=== PATIENT | male | born 1945 | race Two or more races ===

== ENCOUNTER 2020-09-09 11:14 | Emergency (ER) | payer OTHER, MEDICAID ==
[~2020-09-09] VITALS: Ht 177.8 cm; Wt 77.1 kg
[~2020-09-09 11:14] MED LIST: AMLO-483 PO; Atorvastatin Calcium PO; CLOP75TA28 PO; CYAN500T3 PO; DORZ1SOL2 OP; LATA0.0019 EACHEYE; SIMV-8 PO
[2020-09-09] MEDS ORDERED: SODIUM CHLORIDE 0.9% 1,000 ML IV ONE ×2 (11:30)
[2020-09-09] MEDS ORDERED: KETOROLAC TROMETH 30 MG/ML 1ML VIAL IV ONE (11:45)
[2020-09-09 11:54] LABS: Basophils # (auto) 0 10 ^3/uL (0-0.2); Basophils % (auto) 0.3 % (0.0-2.0); Eosinophils # (auto) 0.1 10 ^3/uL (0-0.8); Eosinophils % (auto) 1.1 % (0.0-7.0); Hematocrit 43.3 % (41.0-53.0); Hemoglobin 14.7 g/dL (13.5-17.5); Lymphocytes # (auto) 1.3 10 ^3/uL (0.4-5.4); Lymphocytes % (auto) 25.4 % (10.0-50.0); Mean Corpuscular Hemoglobin 32.6 pg (28.0-32.0); Mean Corpuscular Hgb Conc. 33.9 g/dL (32.0-36.0); Mean Corpuscular Volume 95.9 fL (80.0-100.0); Monocytes # (auto) 0.4 10 ^3/uL (0-1.3); Monocytes % (auto) 8.4 % (0.0-12.0); Neutrophils # (auto) 3.4 10 ^3/uL (1.6-8.6); Neutrophils % (auto) 64.8 % (37.0-80.0); Nucleated Red Blood Cells % 0.1 %; Platelet Count (auto) 216 10^3/uL (140-450); Red Blood Cells 4.51 10^6/uL (4.5-5.90); Red Cell Distribution Width 14.1 % (11.8-14.3); White Blood Cell 5.2 10^3/uL (4.4-10.8)
[2020-09-09 12:09] LABS: Albumin 3.7 g/dL (3.4-5.0); Anion Gap 5 (5-15); Blood Urea Nitrogen 8 mg/dL (7-18); Calcium 8.5 mg/dL (8.5-10.1); Carbon Dioxide 24 mmol/L (21-32); Chloride 112 mmol/L (98-107); Glucose 117 mg/dL (74-106); Potassium 3.6 mmol/L (3.5-5.1); Sodium 141 mmol/L (136-145)
[2020-09-09 12:15] LABS: Alanine Aminotransferase 26 U/L (16-61); Alkaline Phosphatase 73 U/L (45-117); Aspartate Aminotransferase 20 U/L (15-37); BUN/Creatinine Ratio 7.6; Bilirubin, Total 0.7 mg/dL (0.2-1.0); GFR African American 89 mL/min; GFR Non-African American 73 mL/min; Total Protein 6.9 g/dL (6.4-8.2)
[2020-09-09 13:32] LABS: Urine Bacteria NONE SEEN /hpf (None Seen); Urine Blood Negative /uL (Negative); Urine Mucus FEW (None Seen); Urine Specific Gravity 1.024 (1.001-1.035); Urine WBC 1 /hpf (0 - 3)
[2020-09-09 14:28] VITALS: BP 128/81
== END 2020-09-09 15:32 | disposition home or self-care (01) ==
LOC: EDBD 11:14 → ER 11:14
DX: R10.9 Unspecified abdominal pain (principal); E11.9 Type 2 diabetes mellitus without complications; I10 Essential (primary) hypertension; F12.10 Cannabis abuse, uncomplicated; Z90.49 Acquired absence of other specified parts of digestive tract; Z86.73 Personal history of transient ischemic attack (TIA), and cerebral infarction without residual deficits
CPT/HCPCS: 36415; 71045; 74176; 80053; 81001; 84484; 85025; 93005; 96361; 96374; 99285; J1885; J7030

== ENCOUNTER → 2021-08-02 | Outpatient (CLI) | payer MEDICAID ==
[2021-08-02 12:38] LABS: Albumin 3.4 g/dL (3.4-5.0); Calcium 8.9 mg/dL (8.5-10.1); Potassium 3.7 mmol/L (3.5-5.1)
[2021-08-02 12:42] LABS: BUN/Creatinine Ratio 14.3; Bilirubin, Total 0.7 mg/dL (0.2-1.0); Total Protein 6.7 g/dL (6.4-8.2)
== END | disposition home or self-care (01) ==
LOC: LAB 11:38
PROVIDERS: ATTEND Podiatrist
DX: E11.49 Type 2 diabetes mellitus with other diabetic neurological complication (principal)
CPT/HCPCS: 36415; 80053; 83036

== ENCOUNTER → 2021-11-14 | Outpatient (CLI) | payer MEDICAID | END | disposition home or self-care (01) | LOC: XY 09:59 | PROVIDERS: ATTEND Podiatrist | DX: I77.9 Disorder of arteries and arterioles, unspecified (principal) | CPT/HCPCS: 93925 ==

== ENCOUNTER 2022-02-07 11:15 | Inpatient (IN) | payer OTHER, MEDICAID ==
[~2022-02-07] VITALS: Ht 188 cm; Wt 68.3 kg
[2022-02-07 12:22] LABS: Basophils # (auto) 0 10 ^3/uL (0-0.2); Basophils % (auto) 0.5 % (0.0-2.0); Eosinophils # (auto) 0.1 10 ^3/uL (0-0.8); Eosinophils % (auto) 1.4 % (0.0-7.0); Hematocrit 42.8 % (41.0-53.0); Hemoglobin 14.5 g/dL (13.5-17.5); Lymphocytes # (auto) 1.6 10 ^3/uL (0.4-5.4); Lymphocytes % (auto) 25.3 % (10.0-50.0); Mean Corpuscular Hemoglobin 31.3 pg (28.0-32.0); Mean Corpuscular Hgb Conc. 33.7 g/dL (32.0-36.0); Mean Corpuscular Volume 92.6 fL (80.0-100.0); Monocytes # (auto) 0.5 10 ^3/uL (0-1.3); Monocytes % (auto) 7.5 % (0.0-12.0); Neutrophils % (auto) 65.3 % (37.0-80.0); Red Blood Cells 4.62 10^6/uL (4.5-5.90); Red Cell Distribution Width 13.8 % (11.8-14.3); White Blood Cell 6.2 10^3/uL (4.4-10.8)
[2022-02-07 12:53] LABS: Albumin 3.6 g/dL (3.4-5.0); Calcium 8.7 mg/dL (8.5-10.1); Potassium 3.1 mmol/L (3.5-5.1)
[2022-02-07 12:56] LABS: BUN/Creatinine Ratio 7.4; Total Protein 7.2 g/dL (6.4-8.2)
[2022-02-07] MEDS ORDERED: ACETAMINOPHEN/CODEINE#3 (300/30mg) TAB PO ONE (15:00)
[2022-02-07] MEDS ORDERED: ONDANSETRON HCL 4 MG/2 ML VIAL IV PRN (16:45)
[2022-02-07] MEDS ORDERED: POTASSIUM CHL 20 Meq TABLET PO ONE (17:45)
[2022-02-07 20:16] LABS: Magnesium 2.1 mg/dL (1.6-2.6); Phosphorus 2.9 mg/dL (2.5-4.90)
[2022-02-07] MEDS: ATORVASTATIN 20 MG TAB PO SCH (23:47)
[2022-02-07] MEDS: [UNRECOGNIZED DRUG - OTHER] EACHEYE SCH (23:52)
[2022-02-07] MEDS: LATANOPROST 0.005 % OPTH(EYE) SOL 2.5ML EACHEYE SCH (23:53)
[2022-02-08] MEDS: TEMAZEPAM 15 MG CAP PO PRN (00:46)
[2022-02-08 04:37] LABS: Basophils # (auto) 0 10 ^3/uL (0-0.2); Basophils % (auto) 0.3 % (0.0-2.0); Eosinophils # (auto) 0.1 10 ^3/uL (0-0.8); Eosinophils % (auto) 1.9 % (0.0-7.0); Hematocrit 41.6 % (41.0-53.0); Hemoglobin 14.1 g/dL (13.5-17.5); Lymphocytes # (auto) 1.7 10 ^3/uL (0.4-5.4); Mean Corpuscular Hemoglobin 32.2 pg (28.0-32.0); Mean Corpuscular Volume 94.8 fL (80.0-100.0); Monocytes # (auto) 0.7 10 ^3/uL (0-1.3); Monocytes % (auto) 9.1 % (0.0-12.0); Neutrophils # (auto) 4.7 10 ^3/uL (1.6-8.6); Neutrophils % (auto) 65.7 % (37.0-80.0); Nucleated Red Blood Cells % 0.1 %; Red Blood Cells 4.39 10^6/uL (4.5-5.90); Red Cell Distribution Width 13.9 % (11.8-14.3); White Blood Cell 7.2 10^3/uL (4.4-10.8)
[2022-02-08 04:50] LABS: Albumin 3.5 g/dL (3.4-5.0); Calcium 8.7 mg/dL (8.5-10.1); Potassium 3.6 mmol/L (3.5-5.1)
[2022-02-08 05:01] LABS: BUN/Creatinine Ratio 10.7; Bilirubin, Total 0.8 mg/dL (0.2-1.0); Total Protein 6.4 g/dL (6.4-8.2)
[2022-02-08] MEDS ORDERED: CLOPIDOGREL BISULFATE 75 MG TAB PO SCH (10:00)
[2022-02-08] MEDS: [UNRECOGNIZED DRUG - OTHER] EACHEYE SCH ×2 (10:00→22:00)
[2022-02-08] MEDS: ENOXAPARIN SOD 40 MG/0.4 ML SYRINGE SC SCH (11:45)
[2022-02-08] MEDS: PANTOPRAZOLE 40 MG TAB PO SCH (11:46)
[2022-02-08] MEDS: CYANOCOBALAMIN 500 MCG TAB PO SCH (11:46)
[2022-02-08] MEDS: amLODIPine BESYLATE 5 MG TAB PO SCH (11:46)
[2022-02-08] MEDS: LATANOPROST 0.005 % OPTH(EYE) SOL 2.5ML EACHEYE SCH (11:47)
[2022-02-08] MEDS ORDERED: LORazepam 2MG/ML-1ML VIAL IV PRN (17:15)
[2022-02-08 17:30] VITALS: BP 147/69
[2022-02-08 19:23] LABS: Cholesterol 123 mg/dL (< 200); HDL Cholesterol 63 mg/dL (40-59); LDL Cholesterol 59 mg/dL (< 100); Triglycerides 94 mg/dL (< 150)
[2022-02-08 21:45] VITALS: BP 155/79
[2022-02-08] MEDS: DONEPEZIL HYDROCHLORIDE 5 MG TAB PO SCH (23:01)
[2022-02-08] MEDS: ATORVASTATIN 20 MG TAB PO SCH (23:02)
[2022-02-08] MEDS: TICAGRELOR 90 MG TAB PO SCH (23:02)
[2022-02-09 04:38] VITALS: BP 135/97
[2022-02-09 09:00] VITALS: BP 139/78
[2022-02-09] MEDS: ASPirin-EC 81 mg tab PO SCH (09:57)
[2022-02-09] MEDS: ENOXAPARIN SOD 40 MG/0.4 ML SYRINGE SC SCH (09:57)
[2022-02-09] MEDS: TICAGRELOR 90 MG TAB PO SCH ×2 (09:57→22:10)
[2022-02-09] MEDS: [UNRECOGNIZED DRUG - OTHER] EACHEYE SCH ×2 (09:58→22:00)
[2022-02-09] MEDS: amLODIPine BESYLATE 5 MG TAB PO SCH (09:58)
[2022-02-09] MEDS: PANTOPRAZOLE 40 MG TAB PO SCH (09:58)
[2022-02-09] MEDS: CYANOCOBALAMIN 500 MCG TAB PO SCH (09:58)
[2022-02-09] MEDS: HYDROcodone-ACET 5/325MG TAB PO PRN ×2 (10:12→21:40)
[2022-02-09 12:43] VITALS: BP 135/78
[2022-02-09 16:58] VITALS: BP 176/72
[2022-02-09 22:00] VITALS: BP 138/70
[2022-02-09] MEDS: LATANOPROST 0.005 % OPTH(EYE) SOL 2.5ML EACHEYE SCH (22:00)
[2022-02-09] MEDS: DONEPEZIL HYDROCHLORIDE 5 MG TAB PO SCH (22:10)
[2022-02-09] MEDS: ATORVASTATIN 20 MG TAB PO SCH (22:10)
[2022-02-10 05:00] VITALS: BP 178/70
[2022-02-10] MEDS ORDERED: ADENOSINE 59 MG in GIVE UN-DILUTED 0 ML IV STA (07:41)
[2022-02-10 09:00] VITALS: BP 139/78
[2022-02-10] MEDS: [UNRECOGNIZED DRUG - OTHER] EACHEYE SCH ×2 (10:00→21:12)
[2022-02-10 10:07] VITALS: BP 134/68
[2022-02-10] MEDS: PANTOPRAZOLE 40 MG TAB PO SCH (12:17)
[2022-02-10] MEDS: TICAGRELOR 90 MG TAB PO SCH ×2 (12:18→21:11)
[2022-02-10] MEDS: CYANOCOBALAMIN 500 MCG TAB PO SCH (12:20)
[2022-02-10] MEDS: ENOXAPARIN SOD 40 MG/0.4 ML SYRINGE SC SCH (12:20)
[2022-02-10] MEDS: amLODIPine BESYLATE 5 MG TAB PO SCH (12:20)
[2022-02-10] MEDS: ASPirin-EC 81 mg tab PO SCH (12:21)
[2022-02-10 13:00] VITALS: BP 159/60
[2022-02-10 17:00] VITALS: BP 110/64
[2022-02-10] MEDS: DONEPEZIL HYDROCHLORIDE 5 MG TAB PO SCH (21:11)
[2022-02-10] MEDS: ATORVASTATIN 20 MG TAB PO SCH (21:11)
[2022-02-10] MEDS: HYDROcodone-ACET 5/325MG TAB PO PRN (21:11)
[2022-02-10] MEDS: TEMAZEPAM 15 MG CAP PO PRN (21:12)
[2022-02-10] MEDS: LATANOPROST 0.005 % OPTH(EYE) SOL 2.5ML EACHEYE SCH (21:12)
[2022-02-10 22:40] VITALS: BP 121/65
[2022-02-11 05:42] VITALS: BP 136/81
[2022-02-11 09:00] VITALS: BP 154/72
[2022-02-11] MEDS: ASPirin-EC 81 mg tab PO SCH (09:59)
[2022-02-11] MEDS: PANTOPRAZOLE 40 MG TAB PO SCH (09:59)
[2022-02-11] MEDS: CYANOCOBALAMIN 500 MCG TAB PO SCH (09:59)
[2022-02-11] MEDS: TICAGRELOR 90 MG TAB PO SCH ×2 (10:01→22:39)
[2022-02-11] MEDS: amLODIPine BESYLATE 5 MG TAB PO SCH (10:01)
[2022-02-11] MEDS: ENOXAPARIN SOD 40 MG/0.4 ML SYRINGE SC SCH (10:02)
[2022-02-11] MEDS: [UNRECOGNIZED DRUG - OTHER] EACHEYE SCH ×2 (12:21→22:38)
[2022-02-11 22:00] VITALS: BP 121/65
[2022-02-11] MEDS: LATANOPROST 0.005 % OPTH(EYE) SOL 2.5ML EACHEYE SCH (22:00)
[2022-02-11] MEDS: DONEPEZIL HYDROCHLORIDE 5 MG TAB PO SCH (22:38)
[2022-02-11] MEDS: HYDROcodone-ACET 5/325MG TAB PO PRN (22:41)
[2022-02-11] MEDS: ATORVASTATIN 20 MG TAB PO SCH (22:42)
[2022-02-12 05:00] VITALS: BP 126/78
[2022-02-12] MEDS: HYDROcodone-ACET 5/325MG TAB PO PRN (07:03)
[2022-02-12 08:45] VITALS: BP 129/64
[2022-02-12] MEDS: amLODIPine BESYLATE 5 MG TAB PO SCH (09:22)
[2022-02-12] MEDS: ASPirin-EC 81 mg tab PO SCH (09:23)
[2022-02-12] MEDS: PANTOPRAZOLE 40 MG TAB PO SCH (09:23)
[2022-02-12] MEDS: TICAGRELOR 90 MG TAB PO SCH ×2 (09:23→21:20)
[2022-02-12] MEDS: CYANOCOBALAMIN 500 MCG TAB PO SCH (09:23)
[2022-02-12] MEDS: ENOXAPARIN SOD 40 MG/0.4 ML SYRINGE SC SCH (09:23)
[2022-02-12] MEDS: [UNRECOGNIZED DRUG - OTHER] EACHEYE SCH ×2 (09:24→21:34)
[2022-02-12] MEDS ORDERED: LOPERAMIDE HCL 2 MG CAP/TAB PO ONE (10:15)
[2022-02-12] MEDS ORDERED: LOPERAMIDE HCL 2 MG CAP/TAB PO PRN (10:15)
[2022-02-12 12:50] VITALS: BP 142/70
[2022-02-12 16:40] VITALS: BP 131/66
[2022-02-12] MEDS: DONEPEZIL HYDROCHLORIDE 5 MG TAB PO SCH (21:19)
[2022-02-12] MEDS: ATORVASTATIN 20 MG TAB PO SCH (21:20)
[2022-02-12] MEDS: LATANOPROST 0.005 % OPTH(EYE) SOL 2.5ML EACHEYE SCH (21:34)
[2022-02-12 22:09] VITALS: BP 124/69
[2022-02-13 04:48] VITALS: BP 137/74
[2022-02-13] MEDS: PANTOPRAZOLE 40 MG TAB PO SCH (09:23)
[2022-02-13] MEDS: CYANOCOBALAMIN 500 MCG TAB PO SCH (09:23)
[2022-02-13] MEDS: amLODIPine BESYLATE 5 MG TAB PO SCH (09:24)
[2022-02-13] MEDS: TICAGRELOR 90 MG TAB PO SCH ×2 (09:24→20:07)
[2022-02-13] MEDS: ASPirin-EC 81 mg tab PO SCH (09:24)
[2022-02-13] MEDS: ENOXAPARIN SOD 40 MG/0.4 ML SYRINGE SC SCH (09:25)
[2022-02-13] MEDS: [UNRECOGNIZED DRUG - OTHER] EACHEYE SCH ×2 (09:30→20:09)
[2022-02-13 13:20] VITALS: BP 146/68
[2022-02-13 17:54] VITALS: BP 146/68
[2022-02-13 17:58] VITALS: BP 126/73
[2022-02-13] MEDS: DONEPEZIL HYDROCHLORIDE 5 MG TAB PO SCH (20:06)
[2022-02-13] MEDS: HYDROcodone-ACET 5/325MG TAB PO PRN (20:06)
[2022-02-13] MEDS: ATORVASTATIN 20 MG TAB PO SCH (20:07)
[2022-02-13] MEDS: LATANOPROST 0.005 % OPTH(EYE) SOL 2.5ML EACHEYE SCH (20:08)
== END 2022-02-13 21:38 | DRG 65 ==
LOC: ER 11:15 → TELE 16:43 → TELE-WESTW 02-08 16:42 → OBSVTOIN 02-10 01:51
PROVIDERS: ADMIT Nurse Practitioner Family; ATTEND Family Medicine
DX: I63.9 Cerebral infarction, unspecified (principal); E44.0 Moderate protein-calorie malnutrition; F01.54 Vascular dementia, unspecified severity, with anxiety; F02.84 Dementia in other diseases classified elsewhere, unspecified severity, with anxiety; I69.354 Hemiplegia and hemiparesis following cerebral infarction affecting left non-dominant side; Z68.1 Body mass index [BMI] 19.9 or less, adult; G30.9 Alzheimer's disease, unspecified; I49.9 Cardiac arrhythmia, unspecified; R42 Dizziness and giddiness; W19.XXXA Unspecified fall, initial encounter; R55 Syncope and collapse; E87.6 Hypokalemia; I25.10 Atherosclerotic heart disease of native coronary artery without angina pectoris; Z20.822 Contact with and (suspected) exposure to COVID-19; E11.9 Type 2 diabetes mellitus without complications; I10 Essential (primary) hypertension; H40.9 Unspecified glaucoma; E78.5 Hyperlipidemia, unspecified; F17.210 Nicotine dependence, cigarettes, uncomplicated; E78.00 Pure hypercholesterolemia, unspecified; R29.6 Repeated falls; Z90.49 Acquired absence of other specified parts of digestive tract; Z83.3 Family history of diabetes mellitus; Z79.02 Long term (current) use of antithrombotics/antiplatelets; Z79.82 Long term (current) use of aspirin; Z79.84 Long term (current) use of oral hypoglycemic drugs; Z79.899 Other long term (current) drug therapy
CPT/HCPCS: 36415; 70450; 70551; 71101; 71250; 72131; 73502; 73700; 74176; 78452; 80053; 80061; 82607; 83735; 84100; 84443; 84484; 85025; 87426; 93005; 93017; 93306; 93886; 95819; 97163; G0378; J0153

== ENCOUNTER 2022-12-04 11:54 | Inpatient (IN) | payer OTHER, MEDICAID ==
[~2022-12-04] VITALS: Ht 188 cm; Wt 71.8 kg
[~2022-12-04 11:54] MED LIST changes: -AMLO-483 PO; +AMLO1TAB21 PO; -LATA0.0019 EACHEYE; +LATA0.008 EACHEYE; -SIMV-8 PO; +SIMV20TA20 PO
[2022-12-04 13:14] VITALS: PULSE 80; RESP 10; O2SAT 97
[2022-12-04 13:14] LABS: Basophils # (auto) 0 10 ^3/uL (0-0.2); Basophils % (auto) 0.2 % (0.0-2.0); Eosinophils # (auto) 0.1 10 ^3/uL (0-0.8); Eosinophils % (auto) 2.2 % (0.0-7.0); Hematocrit 41.7 % (41.0-53.0); Hemoglobin 14.1 g/dL (13.5-17.5); Lymphocytes # (auto) 1.7 10 ^3/uL (0.4-5.4); Lymphocytes % (auto) 28.1 % (10.0-50.0); Mean Corpuscular Hemoglobin 32.6 pg (28.0-32.0); Mean Corpuscular Hgb Conc. 33.8 g/dL (32.0-36.0); Mean Corpuscular Volume 96.6 fL (80.0-100.0); Monocytes # (auto) 0.4 10 ^3/uL (0-1.3); Monocytes % (auto) 6.7 % (0.0-12.0); Neutrophils # (auto) 3.8 10 ^3/uL (1.6-8.6); Neutrophils % (auto) 62.8 % (37.0-80.0); Nucleated Red Blood Cells % 0.1 %; Red Blood Cells 4.32 10^6/uL (4.5-5.90); Red Cell Distribution Width 13.6 % (11.8-14.3); White Blood Cell 6.1 10^3/uL (4.4-10.8)
[2022-12-04 13:30] LABS: INR 1.06 (0.9-1.15); Partial Thromboplastin Time 27.3 SEC (24.5-34.5); Prothrombin Time 11.1 sec (9.3-11.8)
[2022-12-04 13:46] LABS: Potassium 3.5 mmol/L (3.5-5.1)
[2022-12-04 14:03] LABS: Albumin 3.6 g/dL (3.4-5.0); BUN/Creatinine Ratio 8.9 (10.0-20.0); Bilirubin, Total 0.6 mg/dL (0.2-1.0); Calcium 8.8 mg/dL (8.5-10.1); Total Protein 6.8 g/dL (6.4-8.2)
[2022-12-04 14:24] LABS: Urine Bacteria NONE SEEN /hpf (None Seen); Urine Blood Negative /uL (Negative); Urine Clarity Clear (Clear); Urine Color Yellow (Yellow); Urine Mucus FEW (None Seen); Urine Protein, UAD TRACE (Negative); Urine Specific Gravity 1.022 (1.001-1.035); Urine WBC 2 /hpf (0 - 3); Urine pH 6.5 (5.0-8.0)
[2022-12-04] MEDS ORDERED: ASPirin-EC 81 mg tab PO ONE (15:15)
[2022-12-04] MEDS ORDERED: DEXTROSE (50%) 50ML SYRG IV PRN (15:45)
[2022-12-04] MEDS ORDERED: NITROGLYCERIN 0.4 MG SL TAB SL PRN (15:45)
[2022-12-04] MEDS ORDERED: SODIUM CHLORIDE 0.9% 1,000 ML IV SCH (15:45)
[2022-12-04] MEDS ORDERED: MORPHINE SULFATE INJ 2 MG/ml SYRG IV PRN ×2 (15:45→23:45)
[2022-12-04] MEDS: SOD CHL 0.45% 1,000 ML IV SCH (16:32)
[2022-12-04 16:40] LABS: Cholesterol 164 mg/dL (< 200); HDL Cholesterol 52 mg/dL (40-59); LDL Cholesterol 102 mg/dL (< 100); Triglycerides 62 mg/dL (< 150)
[2022-12-04 16:58] LABS: Alcohol, Urine < 3.0 mg/dL (0-10); Barbiturate Scree,Urine NEGATIVE (NEGATIVE); Benzodiazephine Screen, Urine NEGATIVE (NEGATIVE); Cannabinoid Screen, Urine POSITIVE (NEGATIVE); Cocaine Screen, Urine NEGATIVE (NEGATIVE)
[2022-12-04 17:06] LABS: Amphetamine Screen, Urine NEGATIVE (NEGATIVE); Opiate Scree,Urine NEGATIVE (NEGATIVE); Phencyclidine Screen, Urine NEGATIVE (NEGATIVE)
[2022-12-04] MEDS: InsuLIN REG 1unit/0.01ml Soln (100units/ml) SC SCH ×2 (17:45→22:00)
[2022-12-04] MEDS: ACCU-CHEK COMFORT CURVE STRIP VI SCH ×2 (17:46→22:12)
[2022-12-04 19:30] VITALS: PULSE 68; RESP 18; O2SAT 99
[2022-12-04] MEDS ORDERED: LORazepam 2MG/ML-1ML VIAL IV PRN (20:30)
[2022-12-04 21:18] LABS: Cholesterol 163 mg/dL (< 200); Triglycerides 76 mg/dL (< 150)
[2022-12-04 21:22] LABS: HDL Cholesterol 53 mg/dL (40-59); LDL Cholesterol 102 mg/dL (< 100)
[2022-12-04] MEDS: TICAGRELOR 90 MG TAB PO SCH (22:15)
[2022-12-04] MEDS: ATORVASTATIN 20 MG TAB PO SCH (22:15)
[2022-12-04] MEDS: LATANOPROST 0.005 % OPTH(EYE) SOL 2.5ML EACHEYE SCH (22:16)
[2022-12-04] MEDS: DORZOLAM-TIMOLOL(2/0.5%) OPTH(EYE) SOLN 10ML OP SCH (22:17)
[2022-12-05] MEDS ORDERED: FAMOTIDINE (10MG/ML) 2ML VL IV ONE
[2022-12-05 05:00] VITALS: BP 142/61; PULSE 85; RESP 18; TEMP 97.8; O2SAT 99
[2022-12-05 05:18] LABS: Potassium 3.5 mmol/L (3.5-5.1)
[2022-12-05 05:26] LABS: Albumin 3.5 g/dL (3.4-5.0); BUN/Creatinine Ratio 11.5 (10.0-20.0); Bilirubin, Total 0.7 mg/dL (0.2-1.0); Calcium 8.6 mg/dL (8.5-10.1)
[2022-12-05 05:40] LABS: Basophils # (auto) 0 10 ^3/uL (0-0.2); Basophils % (auto) 0.3 % (0.0-2.0); Eosinophils # (auto) 0.2 10 ^3/uL (0-0.8); Eosinophils % (auto) 3.1 % (0.0-7.0); Hematocrit 40.4 % (41.0-53.0); Hemoglobin 13.7 g/dL (13.5-17.5); Lymphocytes # (auto) 2.1 10 ^3/uL (0.4-5.4); Lymphocytes % (auto) 33.5 % (10.0-50.0); Mean Corpuscular Hemoglobin 32.4 pg (28.0-32.0); Mean Corpuscular Hgb Conc. 33.8 g/dL (32.0-36.0); Mean Corpuscular Volume 95.9 fL (80.0-100.0); Monocytes # (auto) 0.6 10 ^3/uL (0-1.3); Monocytes % (auto) 8.9 % (0.0-12.0); Neutrophils # (auto) 3.3 10 ^3/uL (1.6-8.6); Neutrophils % (auto) 54.2 % (37.0-80.0); Nucleated Red Blood Cells % 0.1 %; Red Blood Cells 4.21 10^6/uL (4.5-5.90); Red Cell Distribution Width 13.7 % (11.8-14.3); White Blood Cell 6.2 10^3/uL (4.4-10.8)
[2022-12-05] MEDS ORDERED: hydrALAZINE HCL 20 MG/ML VL IV PRN (05:45)
[2022-12-05] MEDS: ACCU-CHEK COMFORT CURVE STRIP VI SCH ×4 (06:30→22:21)
[2022-12-05] MEDS: InsuLIN REG 1unit/0.01ml Soln (100units/ml) SC SCH ×4 (06:31→22:00)
[2022-12-05 07:35] VITALS: PULSE 76; RESP 15; O2SAT 99
[2022-12-05] MEDS ORDERED: CLOPIDOGREL BISULFATE 75 MG TAB PO SCH (10:00)
[2022-12-05] MEDS: SOD CHL 0.45% 1,000 ML IV SCH (10:23)
[2022-12-05] MEDS: ENOXAPARIN SOD 40 MG/0.4 ML SYRINGE SC SCH (10:24)
[2022-12-05] MEDS: FAMOTIDINE (10MG/ML) 2ML VL IV SCH ×2 (10:24→22:21)
[2022-12-05] MEDS: DORZOLAM-TIMOLOL(2/0.5%) OPTH(EYE) SOLN 10ML OP SCH ×2 (10:24→22:21)
[2022-12-05] MEDS: TICAGRELOR 90 MG TAB PO SCH ×2 (10:24→22:20)
[2022-12-05] MEDS: LATANOPROST 0.005 % OPTH(EYE) SOL 2.5ML EACHEYE SCH ×2 (10:24→22:21)
[2022-12-05] MEDS: ASPirin 81 mg TAB PO SCH (10:25)
[2022-12-05] MEDS: CYANOCOBALAMIN 500 MCG TAB PO SCH (10:25)
[2022-12-05] MEDS: amLODIPine BESYLATE 5 MG TAB PO SCH (10:26)
[2022-12-05 11:11] VITALS: BP 153/75; PULSE 67; RESP 18; TEMP 98.6; O2SAT 99
[2022-12-05] MEDS: ACETAMINOPHEN 325 MG TAB PO PRN (12:45)
[2022-12-05 20:20] VITALS: PULSE 70; PULSE 75; RESP 18; O2SAT 99
[2022-12-05 22:00] VITALS: BP 129/59; PULSE 70; RESP 18; TEMP 98; O2SAT 99
[2022-12-05] MEDS: ATORVASTATIN 20 MG TAB PO SCH (22:20)
[2022-12-06] MEDS: SOD CHL 0.45% 1,000 ML IV SCH ×2 (01:35→18:02)
[2022-12-06] MEDS: ACCU-CHEK COMFORT CURVE STRIP VI SCH ×4 (06:52→22:00)
[2022-12-06] MEDS: InsuLIN REG 1unit/0.01ml Soln (100units/ml) SC SCH ×4 (06:53→22:00)
[2022-12-06 07:07] VITALS: PULSE 76
[2022-12-06 07:50] VITALS: PULSE 65
[2022-12-06 09:00] VITALS: BP 143/78; PULSE 87; RESP 18; TEMP 98.6; O2SAT 100
[2022-12-06] MEDS: ENOXAPARIN SOD 40 MG/0.4 ML SYRINGE SC SCH ×2 (10:00→11:24)
[2022-12-06] MEDS: CYANOCOBALAMIN 500 MCG TAB PO SCH (11:22)
[2022-12-06] MEDS: amLODIPine BESYLATE 5 MG TAB PO SCH (11:23)
[2022-12-06] MEDS: FAMOTIDINE (10MG/ML) 2ML VL IV SCH ×2 (11:23→22:00)
[2022-12-06] MEDS: ASPirin 81 mg TAB PO SCH (11:23)
[2022-12-06] MEDS: ACETAMINOPHEN 325 MG TAB PO PRN (11:23)
[2022-12-06] MEDS: DORZOLAM-TIMOLOL(2/0.5%) OPTH(EYE) SOLN 10ML OP SCH ×2 (11:23→22:00)
[2022-12-06] MEDS: TICAGRELOR 90 MG TAB PO SCH ×2 (11:23→22:00)
[2022-12-06] MEDS: LATANOPROST 0.005 % OPTH(EYE) SOL 2.5ML EACHEYE SCH ×2 (11:23→22:00)
[2022-12-06 13:00] VITALS: BP 147/65; PULSE 70; RESP 18; TEMP 98.1; O2SAT 98
[2022-12-06 20:00] VITALS: PULSE 74; PULSE 76; RESP 16
[2022-12-06] MEDS: ATORVASTATIN 20 MG TAB PO SCH (22:00)
[2022-12-07] MEDS: ATORVASTATIN 20 MG TAB PO SCH ×2 (01:35→21:51)
[2022-12-07] MEDS: TICAGRELOR 90 MG TAB PO SCH ×3 (01:35→21:53)
[2022-12-07] MEDS: ACETAMINOPHEN 325 MG TAB PO PRN ×3 (01:35→21:51)
[2022-12-07] MEDS: LATANOPROST 0.005 % OPTH(EYE) SOL 2.5ML EACHEYE SCH ×3 (01:40→21:52)
[2022-12-07] MEDS: DORZOLAM-TIMOLOL(2/0.5%) OPTH(EYE) SOLN 10ML OP SCH ×3 (01:40→21:52)
[2022-12-07] MEDS: FAMOTIDINE (10MG/ML) 2ML VL IV SCH ×4 (02:24→21:52)
[2022-12-07 05:00] VITALS: BP 138/77; PULSE 85; RESP 22; TEMP 97.9; O2SAT 99
[2022-12-07] MEDS: ACCU-CHEK COMFORT CURVE STRIP VI SCH ×4 (06:28→21:59)
[2022-12-07] MEDS: InsuLIN REG 1unit/0.01ml Soln (100units/ml) SC SCH ×4 (06:28→22:00)
[2022-12-07 08:34] VITALS: PULSE 76
[2022-12-07] MEDS: SOD CHL 0.45% 1,000 ML IV SCH (10:55)
[2022-12-07 11:15] VITALS: BP 131/76; PULSE 81; RESP 18; TEMP 97.6; O2SAT 98
[2022-12-07] MEDS: CYANOCOBALAMIN 500 MCG TAB PO SCH (11:15)
[2022-12-07] MEDS: amLODIPine BESYLATE 5 MG TAB PO SCH (11:17)
[2022-12-07] MEDS: ASPirin 81 mg TAB PO SCH (11:17)
[2022-12-07] MEDS: ENOXAPARIN SOD 40 MG/0.4 ML SYRINGE SC SCH (11:18)
[2022-12-07 17:23] VITALS: BP 123/64; PULSE 85; RESP 18; TEMP 97.9; O2SAT 98
[2022-12-07 20:00] VITALS: PULSE 91; RESP 16
[2022-12-08] MEDS: SOD CHL 0.45% 1,000 ML IV SCH ×2 (02:06→20:15)
[2022-12-08] MEDS: InsuLIN REG 1unit/0.01ml Soln (100units/ml) SC SCH ×3 (06:08→21:55)
[2022-12-08] MEDS: ACCU-CHEK COMFORT CURVE STRIP VI SCH ×3 (06:08→21:55)
[2022-12-08 08:00] VITALS: PULSE 77; RESP 16
[2022-12-08] MEDS: ASPirin 81 mg TAB PO SCH ×2 (10:00→13:53)
[2022-12-08] MEDS: amLODIPine BESYLATE 5 MG TAB PO SCH (10:00)
[2022-12-08] MEDS: DORZOLAM-TIMOLOL(2/0.5%) OPTH(EYE) SOLN 10ML OP SCH ×2 (10:00→21:39)
[2022-12-08] MEDS: ENOXAPARIN SOD 40 MG/0.4 ML SYRINGE SC SCH (10:00)
[2022-12-08] MEDS: CYANOCOBALAMIN 500 MCG TAB PO SCH (10:00)
[2022-12-08] MEDS: LATANOPROST 0.005 % OPTH(EYE) SOL 2.5ML EACHEYE SCH ×2 (10:00→21:39)
[2022-12-08] MEDS: TICAGRELOR 90 MG TAB PO SCH ×2 (13:53→21:38)
[2022-12-08 20:00] VITALS: PULSE 93; RESP 18
[2022-12-08] MEDS: ATORVASTATIN 20 MG TAB PO SCH (21:38)
[2022-12-09] MEDS: ACETAMINOPHEN 325 MG TAB PO PRN (06:44)
[2022-12-09] MEDS: ACCU-CHEK COMFORT CURVE STRIP VI SCH (06:55)
[2022-12-09] MEDS: InsuLIN REG 1unit/0.01ml Soln (100units/ml) SC SCH (06:56)
[2022-12-09 08:00] VITALS: BP 142/82; PULSE 91; RESP 20; TEMP 98.1; O2SAT 99
[2022-12-09 08:10] VITALS: RESP 16
[2022-12-09] MEDS: CYANOCOBALAMIN 500 MCG TAB PO SCH (09:02)
[2022-12-09] MEDS: ASPirin 81 mg TAB PO SCH (09:02)
[2022-12-09] MEDS: ENOXAPARIN SOD 40 MG/0.4 ML SYRINGE SC SCH (09:03)
[2022-12-09] MEDS: amLODIPine BESYLATE 5 MG TAB PO SCH (09:03)
[2022-12-09] MEDS: TICAGRELOR 90 MG TAB PO SCH (09:04)
[2022-12-09] MEDS: LATANOPROST 0.005 % OPTH(EYE) SOL 2.5ML EACHEYE SCH (10:00)
[2022-12-09] MEDS: DORZOLAM-TIMOLOL(2/0.5%) OPTH(EYE) SOLN 10ML OP SCH (10:00)
== END 2022-12-09 09:30 | disposition home health service (06) | DRG 92 ==
LOC: ER 11:54 → TELE 15:41 → TELE-CENTR 12-05 11:11
PROVIDERS: ADMIT Family Medicine; ATTEND Family Medicine
DX: R47.81 Slurred speech (principal); I69.354 Hemiplegia and hemiparesis following cerebral infarction affecting left non-dominant side; G30.9 Alzheimer's disease, unspecified; E11.9 Type 2 diabetes mellitus without complications; I10 Essential (primary) hypertension; F01.50 Vascular dementia, unspecified severity, without behavioral disturbance, psychotic disturbance, mood disturbance, and anxiety; F02.80 Dementia in other diseases classified elsewhere, unspecified severity, without behavioral disturbance, psychotic disturbance, mood disturbance, and anxiety; E78.00 Pure hypercholesterolemia, unspecified; E53.8 Deficiency of other specified B group vitamins; Z90.49 Acquired absence of other specified parts of digestive tract; Z79.4 Long term (current) use of insulin
CPT/HCPCS: 36415; 70450; 70551; 71045; 80053; 80061; 80307; 81001; 82962; 83036; 84484; 85025; 85610; 85730; 93005; 93306; 93886; 97110; 97116; 97163; 97530; G0378; J3490

== ENCOUNTER 2023-06-23 16:54 | Inpatient (IN) | payer OTHER, MEDICAID ==
[~2023-06-23] VITALS: Ht 182.9 cm; Wt 67.7 kg
[2023-06-23 20:42] LABS: Basophils # (auto) 0 10 ^3/uL (0-0.2); Basophils % (auto) 0.2 % (0.0-2.0); Eosinophils # (auto) 0.1 10 ^3/uL (0-0.8); Eosinophils % (auto) 1.2 % (0.0-7.0); Hematocrit 39.6 % (41.0-53.0); Lymphocytes % (auto) 23.8 % (10.0-50.0); Mean Corpuscular Hemoglobin 31.4 pg (28.0-32.0); Mean Corpuscular Hgb Conc. 32.8 g/dL (32.0-36.0); Mean Corpuscular Volume 95.8 fL (80.0-100.0); Monocytes # (auto) 0.5 10 ^3/uL (0-1.3); Neutrophils # (auto) 5.7 10 ^3/uL (1.6-8.6); Neutrophils % (auto) 68.8 % (37.0-80.0); Nucleated Red Blood Cells % 0.1 %; Red Blood Cells 4.14 10^6/uL (4.5-5.90); Red Cell Distribution Width 15.9 % (11.8-14.3); White Blood Cell 8.4 10^3/uL (4.4-10.8)
[2023-06-23 20:56] LABS: Chloride 109 mmol/L (98-107); Potassium 3.9 mmol/L (3.5-5.1); Sodium 141 mmol/L (136-145)
[2023-06-23 20:57] LABS: Anion Gap 9 (5-15); Calcium 9.1 mg/dL (8.5-10.1); Carbon Dioxide 23 mmol/L (20-30)
[2023-06-23 21:02] LABS: BUN/Creatinine Ratio 10.5 (10.0-20.0); Blood Urea Nitrogen 8 mg/dL (9-23); Glucose 99 mg/dL (74-106)
[2023-06-23] MEDS ORDERED: ONDANSETRON HCL 4 MG/2 ML VIAL IV PRN (22:15)
[2023-06-23] MEDS ORDERED: DEXTROSE (50%) 50ML SYRG IV PRN (22:15)
[2023-06-23] MEDS ORDERED: ACETAMINOPHEN 325 MG TAB PO PRN (22:15)
[2023-06-24] VITALS (7 sets, daily range): BP systolic 128–148; BP diastolic 61–82; PULSE 66–97; RESP 18–21; TEMP 97.6–98.6; O2SAT 92–99
[2023-06-24] MEDS: MORPHINE SULFATE INJ 2 MG/ml SYRG IV PRN (04:32)
[2023-06-24 06:11] LABS: Chloride 108 mmol/L (98-107); Potassium 3.3 mmol/L (3.5-5.1); Sodium 140 mmol/L (136-145)
[2023-06-24 06:12] LABS: Anion Gap 9 (5-15); Carbon Dioxide 23 mmol/L (20-30)
[2023-06-24 06:13] LABS: Calcium 9.1 mg/dL (8.5-10.1)
[2023-06-24 06:17] LABS: BUN/Creatinine Ratio 6.3 (10.0-20.0); Blood Urea Nitrogen 5 mg/dL (9-23); Glucose 97 mg/dL (74-106)
[2023-06-24] MEDS: InsuLIN REG 1unit/0.01ml Soln (100units/ml) SC SCH (06:41)
[2023-06-24] MEDS: ACCU-CHEK COMFORT CURVE STRIP VI SCH (06:41)
[2023-06-24] MEDS: PROPRANOLOL HCL 20 MG TAB PO SCH (11:08)
[2023-06-24] MEDS: TICAGRELOR 90 MG TAB PO SCH (11:08)
[2023-06-24] MEDS: ISOSORBIDE DINITRATE 10 MG TAB PO SCH (11:10)
[2023-06-24] MEDS: TAMSULOSIN HYDROCHLORIDE 0.4 MG CAP PO SCH (18:37)
[2023-06-24] MEDS ORDERED: ASPI325T4 PO (19:30)
[2023-06-24] MEDS ORDERED: TAMS0.4C36 PO (19:30)
[2023-06-24] MEDS ORDERED: TICA90TA PO (19:30)
[2023-06-24] MEDS ORDERED: FINA5TAB4 PO (19:30)
[2023-06-24] MEDS ORDERED: DONE1TAB88 PO (19:30)
[2023-06-24] MEDS ORDERED: ALPR0.5T7 PO (19:30)
[2023-06-24] MEDS ORDERED: PROP60CA34 PO (19:30)
[2023-06-24 20:25] LABS: Urine Bacteria MANY /hpf (None Seen); Urine Blood TRACE /uL (Negative); Urine Clarity Clear (Clear); Urine Color Colorless (Yellow); Urine Protein, UAD Negative (Negative); Urine Specific Gravity 1.007 (1.001-1.035); Urine Urobilinogen Normal (Negative); Urine WBC 3 /hpf (0 - 3); Urine pH 7.5 (5.0-8.0)
[2023-06-24] MEDS: ATORVASTATIN 20 MG TAB PO SCH (21:33)
[2023-06-24] MEDS: HYDROcodone-ACET 5/325MG TAB PO PRN (21:33)
[2023-06-25 06:24] VITALS: BP 148/70; PULSE 89; RESP 17; TEMP 97.9; O2SAT 99
[2023-06-25 08:23] VITALS: BP 148/64; PULSE 91; RESP 19; TEMP 97.9; O2SAT 99
[2023-06-25] MEDS ORDERED: OXYB5TAB24 PO (11:45)
[2023-06-25] MEDS ORDERED: METF-370 PO (11:45)
[2023-06-25] MEDS ORDERED: ISOS5TAB PO (11:45)
[2023-06-25] MEDS ORDERED: FAMO-12 PO (11:45)
[2023-06-25 13:00] VITALS: BP 128/76; PULSE 62; RESP 18; TEMP 97.4; O2SAT 98
[2023-06-25 16:07] VITALS: BP_SYST 128; BP_SYST 133; BP_DIAS 63; BP_DIAS 73; PULSE 88; PULSE 98; RESP 18; TEMP 97; TEMP 97.8; TEMP 98; O2SAT 93; O2SAT 96
[2023-06-25 22:00] VITALS: BP 147/85; PULSE 85; RESP 17; TEMP 97.8; O2SAT 99
[2023-06-25 22:42] LABS: COVID19 ANTIGEN SOFIA FIA NEGATIVE (NEGATIVE)
[2023-06-26 06:14] VITALS: BP 131/79; PULSE 75; RESP 18
[2023-06-26 08:43] VITALS: BP 110/56; PULSE 97; RESP 16; TEMP 99; O2SAT 99
[2023-06-26] MEDS ORDERED: HYDR-4902 PO (11:01)
[2023-06-26 12:51] VITALS: BP 114/71; PULSE 76; RESP 16; TEMP 97.9; O2SAT 98
== END 2023-06-26 15:32 | disposition hospice, home (50) | DRG 563 ==
LOC: ER 16:54 → EDBD 16:54 → EDUNIT# 16:54 → OVERFLOW 22:29 → WEST WING 22:29
PROVIDERS: ADMIT Nurse Practitioner; ATTEND Family Medicine
DX: S82.65XA Nondisplaced fracture of lateral malleolus of left fibula, initial encounter for closed fracture (principal); I69.354 Hemiplegia and hemiparesis following cerebral infarction affecting left non-dominant side; E11.9 Type 2 diabetes mellitus without complications; I10 Essential (primary) hypertension; F02.80 Dementia in other diseases classified elsewhere, unspecified severity, without behavioral disturbance, psychotic disturbance, mood disturbance, and anxiety; Z20.822 Contact with and (suspected) exposure to COVID-19; G30.9 Alzheimer's disease, unspecified; E78.00 Pure hypercholesterolemia, unspecified; I25.10 Atherosclerotic heart disease of native coronary artery without angina pectoris; W18.39XA Other fall on same level, initial encounter; Z90.49 Acquired absence of other specified parts of digestive tract; Y93.89 Activity, other specified; Y92.89 Other specified places as the place of occurrence of the external cause; Y99.8 Other external cause status
CPT/HCPCS: 36415; 73610; 73630; 80048; 81001; 82962; 85025; 87426; 97110; 97163; G0378; J1815